=== PATIENT | female | born 2005 | race African-American/Black ===

== ENCOUNTER 2023-10-02 09:10 | Emergency (ER) | payer OTHER ==
[2023-10-02] MEDS ORDERED: Lidocaine 1% w/Epinephrine 1:200K 30 ML VIAL ONE (09:50)
== END 2023-10-02 10:22 | disposition home or self-care (01) ==
LOC: CSHERS 09:10
DX: L02.212 Cutaneous abscess of back [any part, except buttock and flank] (principal); E11.9 Type 2 diabetes mellitus without complications
CPT/HCPCS: 10060

== ENCOUNTER 2023-11-19 13:06 | Emergency (ER) | payer OTHER ==
[2023-11-19] MEDS ORDERED: Ibuprofen 200 MG TAB ONE (14:10)
[2023-11-19 14:49] LABS: SARS-CoV-2 NAA Rapid Test Not Detected (NotDetected)
== END 2023-11-19 15:12 | disposition home or self-care (01) ==
LOC: CSHERS 13:06
DX: J10.1 Influenza due to other identified influenza virus with other respiratory manifestations (principal); E11.9 Type 2 diabetes mellitus without complications
CPT/HCPCS: 99284